=== PATIENT | female | born 1980 | race American Indian/Alaskan Native ===

== ENCOUNTER 2017-11-30 00:49 | Inpatient (IN) | payer OTHER ==
[2017-11-30] MEDS ORDERED: PITOCin/NS 20 UNIT/1000ML DRIP 20,000 MILLIUNITS/1,000 ML BAG IV ONE (01:05)
[2017-11-30] MEDS ORDERED: LACTATED RINGERS 1,000 ML ONE ×2 (01:06→08:40)
[2017-11-30] MEDS ORDERED: MAGNESIUM SULFATE 4GM/100ML 4 GM/100 ML BAG IV ONE ×2 (01:17→01:22)
[2017-11-30] MEDS ORDERED: BRETHINE SUB-Q PRN (01:19)
[2017-11-30] MEDS ORDERED: ZOFRAN IV PRN ×2 (01:19→05:55)
[2017-11-30] MEDS ORDERED: BRETHINE IVP PRN (01:19)
[2017-11-30] MEDS ORDERED: XYLOCAINE 2% INFILTRATI ONE (01:19)
[2017-11-30] MEDS ORDERED: POLYCILLIN/NS 2 GM/100 ML 2 GM/100 ML BAG IV ONE (01:19)
[2017-11-30] MEDS ORDERED: ePHEDrine SULFATE IV PRN (01:19)
[2017-11-30] MEDS ORDERED: MINERAL OIL PO PRN (01:19)
[2017-11-30] MEDS ORDERED: NARCAN 0.4 MG/1 ML IV PRN (01:19)
[2017-11-30] MEDS ORDERED: NORMODYNE IV ONE ×2 (01:22→03:26)
[2017-11-30] MEDS ORDERED: APRESOLINE IV PRN (01:22)
[2017-11-30] MEDS ORDERED: MAGNESIUM SULFATE 40GM/1000ML 40 GM/1,000 ML BAG IV SCH (01:23)
--- NOTE | 2017-11-30 01:25 | History and Physical Report ---
History of Present Illness Date of examination: 11/30/17 Date of admission: 11/30/17 00:54 Chief complaint: contractions History of present illness: Pt is a 37 year old -Japanese LMP 02/26/17 at 39w4d who presents with contractions since 6 am with no care whatsoever this . She denies leakage of fluid or vaginal bleeding. She reports that she is considering giving the baby up for adoption. 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 ) Family/Genetic History: heart disease, hypertension Social history: no significant social history - Obstetrical History Expected Date of Delivery: 12/03/17 Actual Gestation: 39 Week(s) 4 Day(s) : 8 Para: 7 Hx # Term Pregnancies: 6 Number of Pregnancies: 1 Spontaneous Abortions: 0 Induced : 0 Number of Living Children: 6 Medications and Allergies Allergies Allergy/AdvReac Type Severity Reaction Status Date / Time No Known Allergies Allergy Verified 10/15/14 01:41 Home Medications Medication Instructions Recorded Confirmed Last Taken Type No Known Home Medications [No 10/15/14 10/15/14 Unknown History Reported Home Medications] Active Meds: Active Medications Ephedrine Sulfate (Ephedrine Sulfate) 10 mg IV Q2M PRN PRN Reason: Hypotension Fentanyl (Sublimaze) 100 mcg IV Q2H PRN PRN Reason: Labor Pain Ampicillin Sodium (Polycillin/Ns 2 Gm/100 Ml) 2 gm in 100 mls @ 100 mls/hr IV ONCE ONE PRN Reason: Protocol Stop: 11/30/17 02:18 Ampicillin Sodium (Polycillin/Ns 1 Gm/50 Ml) 1 gm in 50 mls @ 100 mls/hr IV Q4HR ELIJAH PRN Reason: Protocol Lactated Ringer's (Lactated Ringers) 1,000 mls @ 125 mls/hr IV DIRECT ELIJAH Oxytocin/Sodium Chloride (Pitocin/Ns 20 Unit/1000ml Drip) 20 units in 1,000 mls @ 125 mls/hr IV DIRECT ELIJAH Oxytocin/Sodium Chloride (Pitocin/Ns 30 Unit/500ml) 30 units in 500 mls @ 4 mls /hr IV TITR ELIJAH PRN Reason: Protocol Lidocaine (Xylocaine 2%) 20 ml INFILTRATI ONCE ONE Stop: 11/30/17 01:20 Mineral Oil (Mineral Oil) 30 ml PO QHS PRN PRN Reason: Constipation Naloxone HCl (Narcan 0.4 Mg/1 Ml) 0.1 mg IV Q2MIN PRN PRN Reason: Res Rate </= 8 or 02 SAT < 92% Ondansetron HCl (Zofran) 4 mg IV Q8H PRN PRN Reason: Nausea And Vomiting Terbutaline Sulfate (Brethine) 0.25 mg SUB-Q ONCE PRN PRN Reason: Hyperstimulation/Hypertonicity Terbutaline Sulfate (Brethine) 0.25 mg IVP ONCE PRN PRN Reason: Hyperstimulation/Hypertonicity Review of Systems All systems: negative - Vital Signs Vital signs: Vital Signs Pulse BP 100 H 206/122 11/30/17 01:00 11/30/17 01:00 Temp Pulse Resp BP Pulse Ox 100 H 191/103 11/30/17 01:12 11/30/17 01:12 - Physical Exam Breasts: Positive: deferred Cardiovascular: Regular rate Lungs: Positive: Clear to auscultation Abdomen: Positive: soft (obese, gravid ) Genitourinary (Female): Positive: normal external genitalia Uterus: Positive: enlarged (gravid ) Extremities: Positive: normal - Obstetrical FHR: category 2 Uterine Contraction Monitor Mode: External Cervical Dilatation: 8 Cervical Effacement Percentage: 80 station: -1 Uterine Contraction Pattern: Regular Uterine Tone Measurement Phase: Resting Results Result Diagrams: 11/30/17 01:00 All other labs normal. Assessment and Plan A: IUP at 39w4d by LMP No care Hypertension vs Severe PreEclampsia Pt considering adoption P: Admit to labor and delivery. Magnesium sulfate No care PIH labs Continue to monitor maternal and status.
[2017-11-30] MEDS: SUBLIMAZE IV PRN ×2 (01:50→04:07)
[2017-11-30 01:59] LABS: Hematocrit 36.1 % (30.3-42.9); Hemoglobin 12.2 gm/dl (10.1-14.3); Mean Corpuscular HGB Conc 34 % (30-34); Mean Corpuscular Hemoglobin 30 pg (28-32); Mean Corpuscular Volume 89 fl (79-97); Platelet Count 233 K/mm3 (140-440); Red Blood Count 4.06 M/mm3 (3.65-5.03); Red Cell Distribution Width 14.9 % (13.2-15.2)
[2017-11-30] MEDS ORDERED: PITOCin/NS 30 UNIT/500ML 30 UNITS/500 ML BAG IV SCH (02:00)
[2017-11-30] MEDS ORDERED: PITOCin/NS 20 UNIT/1000ML DRIP 20 UNITS/1,000 ML BAG IV SCH ×2 (02:00→05:55)
[2017-11-30] MEDS ORDERED: LACTATED RINGERS 1,000 ML IV SCH (02:00)
[2017-11-30 02:21] LABS: Alanine Aminotransferase 12 units/L (7-56)
[2017-11-30] MEDS: APRESOLINE IV PRN ×3 (02:27→05:13)
[2017-11-30 02:31] LABS: Hepatitis C Virus Antibody Non-Reactive (NonReactive)
[2017-11-30] MEDS ORDERED: MORPHINE IV ONE (02:46)
[2017-11-30 02:54] LABS: Rubella IgG Antibody Immune (Immune)
[2017-11-30] MEDS ORDERED: fentaNYL-BUPIV 2 MCG/ML-0.125% 200 MCG/100 ML BAG EPIDURAL SCH (03:00)
--- NOTE | 2017-11-30 03:08 | Anesthesia Consultation ---
Anesthesia Consult and Med Hx Date of service: 11/30/17 - Airway Anesthetic Teeth Evaluation: Good ROM Head & Neck: Adequate Mental/Hyoid Distance: Adequate Mallampati Class: Class III Intubation Access Assessment: Possibly Difficult - Pulmonary Exam CTA: Yes - Cardiac Exam Cardiac Exam: RRR - Pre-Operative Health Status ASA Pre-Surgery Classification: ASA3 Proposed Anesthetic Plan: Spinal - Pulmonary Hx Asthma: No COPD: No Hx Pneumonia: No - Cardiovascular System Hx Hypertension: No - Central Nervous System Hx Seizures: No Hx Psychiatric Problems: No - Endocrine Hx Renal Disease: No Hx End Stage Renal Disease: No Hx Hypothyroidism: No Hx Hyperthyroidism: No - Hematic Hx Anemia: No Hx Sickle Cell Disease: No - Other Systems Hx Alcohol Use: Yes
--- NOTE | 2017-11-30 03:08 | Anesthesia Day of Surgery ---
Anesthesia Day of Surgery - Day of Surgery Patient Examined: Yes Patient H&P Reviewed: Yes Patient is NPO: Yes Beta Blockers: Yes Cardiac Clearance: Yes
[2017-11-30 03:10] LABS: Uric Acid 6.8 mg/dL (3.5-7.6)
--- NOTE | 2017-11-30 03:26 | Procedure Note ---
OB Delivery Note - Delivery Date of Delivery: 11/30/17 Surgeon: CHRISTIE MAZARIEGOS Estimated blood loss: 300cc - Vaginal Delivery presentation: compound Delivery position: OA Intrapartum events: no care, PROM->1hr before delivery, meconium, preeclampsia, decreased FHT variability, mult.variable deceleratio Delivery induction: none Delivery augmentation: rupture of membranes Delivery monitor: external FHT, external uterine Route of delivery: Delivery placenta: spontaneous Delivery cord: 3 umbilical vessels Episiotomy: none Delivery laceration: 1st degree (perineal- hemostatic not repaired ), other ( midline periurethral- first degree ) Anesthesia: intravenous, epidural (Morphine in intrathecal space, no catheter ) Delivery comments: Pt progressed to complete/complete/0 and pushed to deliver a viable male over intact perineum via spontaneous vaginal delivery. Head delivered with left hand, and shoulders and body delivered easily. Cord clamped and cut and handed to NICU for meconium. Cord blood collected. Placenta delivered spontaneously. Vagina and perineum explored. Midline periurethral and first degree perineum hemostatic and not repaired. EBL 300 mL. - Infant A at 1 minute: 7 at 5 minutes: 9 Infant Gender: Male (3734g (8lb 4 oz) @ 0301 am)
[2017-11-30 03:49] LABS: Amphetamine Screen,Urine PRESUMPTIVE NEGATIVE; Benzodiazepines Screen,Urine PRESUMPTIVE NEGATIVE; Cannabinoid Screen,Urine PRESUMPTIVE NEGATIVE; Cocaine Screen,Urine PRESUMPTIVE NEGATIVE; Methadone Screen,Urine PRESUMPTIVE NEGATIVE; Opiate Screen,Urine PRESUMPTIVE NEGATIVE
[2017-11-30 04:08] LABS: Bilirubin,Urine NEG (Negative); Blood,Urine LG (Negative); Color,Urine Yellow (Yellow); Hyaline Casts,Urine 5 /LPF; Mucus,Urine 1+ /HPF; Nitrite,Urine NEG (Negative); Protein,Urine >500 mg/dL (Negative); RBC,Urine > 182.0 /HPF (0.0-6.0); Urobilinogen,Urine < 2.0 mg/dL (<2.0)
[2017-11-30] MEDS ORDERED: CYTOTEC PR ONE (04:49)
[2017-11-30] MEDS ORDERED: POLYCILLIN/NS 1 GM/50 ML 1 GM/50 ML BAG IV SCH (05:20)
[2017-11-30] MEDS ORDERED: DULCOLAX PR PRN (05:55)
[2017-11-30] MEDS ORDERED: LANSINOH TP PRN ×2 (05:55)
[2017-11-30] MEDS ORDERED: TUCKS PAD TP PRN (05:55)
[2017-11-30] MEDS ORDERED: MILK OF MAGNESIA PO PRN (05:55)
[2017-11-30] MEDS ORDERED: SODIUM CHLORIDE FLUSH SYRINGE 10 ML IV NR (05:55)
[2017-11-30] MEDS ORDERED: DERMOPLAST TP PRN (05:55)
[2017-11-30] MEDS ORDERED: TYLENOL PO PRN (05:55)
[2017-11-30] MEDS ORDERED: PHENERGAN PO PRN (05:55)
[2017-11-30] MEDS ORDERED: BENADRYL PO PRN (05:55)
[2017-11-30] MEDS ORDERED: PHENERGAN PR PRN (05:55)
[2017-11-30] MEDS: MOTRIN PO SCH ×3 (06:25→18:51)
[2017-11-30] MEDS: NORCO 5/325 PO PRN ×2 (06:26→16:50)
[2017-11-30] MEDS: FEOSOL PO SCH ×2 (08:53→21:55)
[2017-11-30] MEDS: LACTATED RINGERS 1,000 ML IV SCH ×2 (08:54→21:59)
[2017-11-30] MEDS ORDERED: NORMODYNE PO SCH (11:10)
[2017-11-30 15:43] LABS: Hematocrit 32.2 % (30.3-42.9); Hemoglobin 10.8 gm/dl (10.1-14.3)
--- NOTE | 2017-11-30 17:50 | Progress Note ---
Assessment and Plan O: BP elevated 150-160/98-109 PP H/H: 10.8/32.2 Magnesium Level: 5.0 A: No care S/P 4hr prior to assessment Chronic Hypertension with superimposed severe preeclampsia Elevated BP Therapeutic Magnesium Level P: Add Labetalol as ordered Subjective - Subjective Date of service: 11/30/17 Patient reports: appetite normal, pain well controlled (c/o afterbirth pains), other (c/o headache earlier, received motrin, resolved. Denies blurred vision, epigastric pain or scotomata), no voiding normally (bernstein present and patent. ) : doing well Objective - Vital Signs Latest vital signs: Vital Signs Temp Pulse Resp BP BP Pulse Ox 11/30/17 14:06 98.0 F 80 20 132/82 98 11/30/17 11:45 97.7 F 105 H 20 154/99 95 11/30/17 08:42 98.4 F 106 H 24 153/89 95 11/30/17 06:50 98.9 F 105 H 11/30/17 06:45 18 152/98 11/30/17 06:26 18 11/30/17 06:25 18 11/30/17 05:40 110 H 158/100 11/30/17 05:26 104 H 159/101 11/30/17 05:10 101 H 168/106 11/30/17 04:57 102 H 163/101 11/30/17 04:56 100 H 164/99 11/30/17 04:40 103 H 156/90 11/30/17 04:25 96 H 156/90 11/30/17 04:20 100 H 155/86 11/30/17 04:17 97.4 F L 20 11/30/17 04:10 99 H 169/91 11/30/17 04:07 18 11/30/17 04:00 98 H 95 11/30/17 03:56 99 H 172/91 11/30/17 03:55 96 H 94 11/30/17 03:50 101 H 96 11/30/17 03:45 107 H 96 11/30/17 03:44 114 H 176/123 11/30/17 03:41 105 H 167/107 11/30/17 03:40 110 H 176/123 11/30/17 03:27 105 H 159/100 11/30/17 03:09 100 H 196/90 11/30/17 03:06 115 H 214/130 11/30/17 03:03 110 H 178/139 11/30/17 02:59 105 H 175/95 11/30/17 02:51 97 H 187/100 11/30/17 02:48 102 H 181/113 11/30/17 02:41 101 H 195/105 11/30/17 02:36 91 H 201/95 11/30/17 02:27 92 H 188/113 11/30/17 02:22 98 H 177/117 11/30/17 02:20 94 H 100 11/30/17 02:16 88 192/107 11/30/17 02:11 87 186/115 11/30/17 02:07 89 181/101 11/30/17 02:03 93 H 162/104 11/30/17 01:51 100 H 192/99 11/30/17 01:46 102 H 186/96 11/30/17 01:42 96.6 F L 22 11/30/17 01:40 96 H 177/88 11/30/17 01:31 102 H 191/106 11/30/17 01:12 100 H 191/103 11/30/17 01:02 105 H 182/113 11/30/17 01:00 100 H 206/122 Intake and Output 11/30/17 11/30/17 11/30/17 06:59 14:59 22:59 Intake Total 120 Output Total 900 1300 Balance -900 -1180 Intake: Oral 120 Output: Urine 900 1300 Indwelling Catheter 300 1300 Uretheral (Bernstein) 600 Other: Total, Intake Amount 120 Total, Output Amount 300 1300 Weight 97.522 kg Estimated Blood Loss 300 - Exam Breasts: Present: deferred Abdomen: Present: normal appearance, soft Uterus: Present: normal, firm, fundal height at umbilicus - Labs Labs: Abnormal lab results 11/30/17 11/30/17 11/30/17 Range/Units 01:00 01:00 03:20 WBC 11.4 H (4.5-11.0) K/mm3 Creatinine 0.5 L (0.7-1.2) mg/dL Magnesium (1.7-2.3) mg/dL Lactate Dehydrogenase 246 H (91-180) units/L Urine WBC (Auto) 10.0 H (0.0-6.0) /HPF 11/30/17 11/30/17 Range/Units 08:46 15:13 WBC (4.5-11.0) K/mm3 Creatinine (0.7-1.2) mg/dL Magnesium 4.30 H 5.50 H (1.7-2.3) mg/dL Lactate Dehydrogenase (91-180) units/L Urine WBC (Auto) (0.0-6.0) /HPF
[2017-11-30] MEDS: NORMODYNE PO SCH (21:57)
[2017-11-30] MEDS ORDERED: MAGNESIUM SULFATE 40 GM in NACL 0.9% 1000 ML 1,000 ML IV SCH (22:00)
[2017-12-01] MEDS: MOTRIN PO SCH ×3 (02:17→18:46)
[2017-12-01] MEDS ORDERED: BOOSTRIX IM ONE (06:00)
[2017-12-01] MEDS ORDERED: M-M-R II VACCINE SUB-Q ONE (06:00)
[2017-12-01] MEDS: NORCO 5/325 PO PRN (06:35)
--- NOTE | 2017-12-01 08:55 | Progress Note ---
Assessment and Plan A: PPD#1 s/p at term Chronic Hypertension with Superimposed Preeclampsia s/p magnesium sulfate x 24 hrs Labile BPs No care P: Continue routine care. Begin Procardia XL 60 mg q day Monitor clinical status Subjective - Subjective Date of service: 12/01/17 Principal diagnosis: s/p term delivery, chronic hypertension with superimposed preeclampsia Interval history: Pt has decided not to give child up for adoption. She denies PIH symptoms. Magnesium discontinued this morning. Patient reports: appetite normal, voiding normally, pain well controlled, ambulating normally, no dizzy ambulation : doing well Objective - Vital Signs Latest vital signs: Vital Signs Temp Pulse Resp BP BP Pulse Ox 12/01/17 05:01 98.2 F 18 156/83 12/01/17 02:07 97.9 F 151/103 12/01/17 01:27 97.7 F 131/87 11/30/17 21:57 74 151/99 11/30/17 20:05 98.2 F 76 18 150/98 99 11/30/17 18:22 85 22 147/94 147/94 92 11/30/17 16:46 98.6 F 85 24 146/97 96 11/30/17 14:06 98.0 F 80 20 132/82 98 11/30/17 11:45 97.7 F 105 H 20 154/99 95 11/30/17 11:15 159/91 Intake and Output 11/30/17 12/01/17 12/01/17 22:59 06:59 14:59 Intake Total 1221.25 Output Total 400 Balance 821.25 Intake: IV 981.25 Lactated Ringers 1,000 ml 981.25 @ 75 mls/hr IV DIRECT ELIJAH Rx#:[id number] Oral 240 Output: Urine 400 Indwelling Catheter 400 Other: Total, Intake Amount 240 Total, Output Amount 400 - Exam Breasts: Present: deferred Cardiovascular: Present: Regular rate Lungs: Present: Clear to auscultation Abdomen: Present: soft (obese) Uterus: Present: fundal height at umbilicus Extremities: Present: normal - Labs Labs: Abnormal lab results 11/30/17 11/30/17 11/30/17 Range/Units 08:46 15:13 21:34 Magnesium 4.30 H 5.50 H 5.70 H (1.7-2.3) mg/dL
[2017-12-01] MEDS: FEOSOL PO SCH ×2 (10:07→22:51)
[2017-12-01] MEDS: NORMODYNE PO SCH ×2 (10:07→22:55)
[2017-12-01] MEDS: PROCARDIA XL PO SCH (10:07)
[2017-12-02] MEDS ORDERED: PROCARDIA XL PO SCH (10:00)
[2017-12-02] MEDS: FEOSOL PO SCH ×2 (10:54→16:00)
[2017-12-02] MEDS: NORMODYNE PO SCH (10:55)
[2017-12-02] MEDS: MOTRIN PO SCH (11:04)
--- NOTE | 2017-12-02 13:28 | Progress Note ---
Assessment and Plan O: BP 150/80 A: No care Chronic Hypertension with Severe Superimposed Preeclampsia S/P Magnesium Sulfate P: routine orders RTO one week BP check Subjective - Subjective Date of service: 12/02/17 Principal diagnosis: s/p term delivery, chronic hypertension with superimposed preeclampsia Patient reports: appetite normal, voiding normally, pain well controlled, flatus , ambulating normally, other (Denies PIH S&S) : doing well, bottle feeding Objective - Vital Signs Latest vital signs: Vital Signs Temp Pulse Resp BP BP Pulse Ox 12/02/17 11:48 98.3 F 76 20 148/94 98 12/02/17 08:55 98.1 F 83 20 156/96 97 12/02/17 00:15 83 156/87 12/01/17 16:42 98.4 F 85 22 150/81 97 Intake and Output 12/01/17 12/02/17 12/02/17 22:59 06:59 14:59 Intake Total 480 480 600 Balance 480 480 600 Intake: Oral 480 480 120 Intake, Free Water 480 Other: Total, Intake Amount 240 240 120 # Voids Void 1 1 1 - Exam Breasts: Present: deferred Abdomen: Present: normal appearance, soft. Absent: distention, tenderness Vulva: both: normal Uterus: Present: normal, firm, fundal height below umbilicus. Absent: bogginess , tenderness Extremities: Present: normal
--- NOTE | 2017-12-02 13:33 | Discharge Summary ---
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 Notified:: none Comment:: pt considering adoption for this baby Primary care physician: CHRISTIE MAZARIEGOS Hospitalization Reason for admission: active labor, IUP at term Delivery: Episiotomy: none Laceration: 1st degree Other procedures: none complications: other (Preeclampsia) Discharge diagnosis: IUP at term delivered baby: male Condition at discharge: Good Disposition: DC-01 TO HOME OR SELFCARE Plan - Discharge Medications Prescriptions: Ibuprofen [Motrin] 800 mg PO Q8HR PRN #30 tablet PRN Reason: Pain Labetalol [Normodyne TAB] 400 mg PO BID #60 tablet NIFEdipine XL [Procardia Xl] 90 mg PO QDAY #60 tablet oxyCODONE /ACETAMINOPHEN [Percocet 5/325] 1 tab PO Q6HR PRN #20 tablet PRN Reason: Pain - Provider Discharge Summary Activity: routine, no sex for 6 weeks, no heavy lifting 4 weeks, no strenuous exercise Diet: routine Instructions: routine Additional instructions: [] Smoking cessation referral if applicable(refer to patient education folder for contact #) [] Refer to [facility] Booklet Call your doctor immediately for: * Fever > 100.5 * Heavy vaginal bleeding ( >1 pad per hour) * Severe persistent headache * Shortness of breath * Reddened, hot, painful area to leg or breast * Drainage or odor from incision. * Keep incision clean and dry at all times and follow doctor's instructions regarding bathing/showering - Follow up plan Follow up: CHRISTIE MAZARIEGOS MD [Primary Care Provider] - 7 Days (Call office to schedule infant circumcision)
[2017-12-02] MEDS: PROCARDIA XL PO SCH (16:24)
[2017-12-02 17:22] VITALS: BP 146/94
== END 2017-12-02 16:28 | disposition home or self-care (01) | DRG 775 ==
LOC: TRG 00:49 → LD 00:54 → OB 05:49
PROVIDERS: ADMIT Obstetrics & Gynecology; ATTEND Obstetrics & Gynecology
PROC: 10E0XZZ Delivery of Products of Conception, External Approach (ICD-10-PCS; principal; 2017-11-30)
PROC: 3E0R3BZ Introduction of Anesthetic Agent into Spinal Canal, Percutaneous Approach (ICD-10-PCS; 2017-11-30)
PROC: 3E0234Z Introduction of Serum, Toxoid and Vaccine into Muscle, Percutaneous Approach (ICD-10-PCS; 2017-12-01)
DX: O42.02 Full-term premature rupture of membranes, onset of labor within 24 hours of rupture (principal); O77.0 Labor and delivery complicated by meconium in amniotic fluid; O14.14 Severe pre-eclampsia complicating childbirth; O76 Abnormality in fetal heart rate and rhythm complicating labor and delivery; O70.0 First degree perineal laceration during delivery; O71.82 Other specified trauma to perineum and vulva; Z3A.39 39 weeks gestation of pregnancy; Z37.0 Single live birth; Z23 Encounter for immunization
CPT/HCPCS: 36415; 80307; 81001; 82565; 83615; 83735; 84450; 84460; 84550; 85014; 85018; 85027; 85660; 86592; 86706; 86762; 86803; 86850; 86900; 86901; 87806; 99211; G0463; J0290; J0360; J2270; J2590; J3010; J3475; J7030; J7120

== ENCOUNTER 2018-01-31 07:57 | Day surgery (SDC) | payer MEDICAID, OTHER ==
--- NOTE | 2018-01-31 07:38 | Short Stay Summary ---
Short Stay Documentation Date of service: 01/31/18 Narrative H&P: 37-year-old with undesired fertility. The patient was counseled for other contraceptive options. She has elected to undergo permanent sterilization. - History Principal diagnosis: undesired fertility Past Medical History: hypertension Past Surgical History: No surgical history Social history: - Allergies and Medications Current Medications: Allergies No Known Allergies Allergy (Verified 01/29/18 16:27) Home Medications Medication Instructions Recorded Confirmed Last Taken Type Labetalol [Normodyne TAB] 400 mg PO BID #60 tablet 12/02/17 01/29/18 Unknown Rx - Physical exam General appearance: no acute distress Integumentary: no rash HEENT: Atraumatic Lungs: Clear to auscultation Breasts: deferred Heart: Regular rate Gastrointestinal: normal Female Genitourinary: deferred Rectal Exam: deferred Short Stay Discharge Plan Follow up with: CHRISTIE MAZARIEGOS MD [Primary Care Provider] - 7 Days
--- NOTE | 2018-01-31 09:41 | Anesthesia Consultation ---
Anesthesia Consult and Med Hx Date of service: 01/31/18 - Airway Anesthetic Teeth Evaluation: Good ROM Head & Neck: Adequate Mental/Hyoid Distance: Adequate Mallampati Class: Class II - Pulmonary Exam CTA: Yes - Cardiac Exam Cardiac Exam: RRR - Pre-Operative Health Status ASA Pre-Surgery Classification: ASA2 Proposed Anesthetic Plan: General - Pre-Anesthesia Comment Pre-Anesthesia Comments: npo post midnight/denies anethesia problems - Pulmonary Hx Smoking: No Hx Asthma: No Hx Respiratory Symptoms: No SOB: No COPD: No Home Oxygen Therapy: No Hx Pneumonia: No - Cardiovascular System Hx Hypertension: Yes Hx Coronary Artery Disease: No Hx Heart Attack/AMI: No Hx Angina: No Hx Percutaneous Transluminal Coronary Angioplasty (PTCA): No Hx Cardia Arrhythmia: No Hx Pacemaker: No Hx Internal Defibrillator: No Hx Valvular Heart Disease: No Hx Heart Murmur: No Hx Peripheral Vascular Disease: No - Central Nervous System Hx Neuromuscular Disorder: No Hx Seizures: No CVA: No Hx Back Pain: No Hx Psychiatric Problems: No - Gastrointestinal Hx Ulcer: No Hx Gastroesophageal Reflux Disease: No - Endocrine Hx Renal Disease: No Hx End Stage Renal Disease: No Hx Cirrhosis: No Hx Liver Disease: No Hx Insulin Dependent Diabetes: No Hx Non-Insulin Dependent Diabetes: No Hx Thyroid Disease: No Hx Hypothyroidism: No Hx Hyperthyroidism: No - Hematic Hx Anemia: No Hx Sickle Cell Disease: No - Other Systems Hx Alcohol Use: No (occas) Hx Substance Use: No Hx Cancer: No Hx Obesity: No - Additional Comments Anesthesia Medical History Comments: hypertension/poor control
[2018-01-31] MEDS ORDERED: DILAUDID IV PRN (09:43)
[2018-01-31] MEDS ORDERED: PEPCID PO NR (10:00)
[2018-01-31] MEDS ORDERED: VERSED IV NR (10:00)
[2018-01-31] MEDS ORDERED: LACTATED RINGERS 1,000 ML ONE (10:12)
[2018-01-31] MEDS: APRESOLINE IV PRN ×2 (10:40→11:35)
[2018-01-31] MEDS ORDERED: MARCAINE 0.5% INFILTRATI ONE (10:54)
[2018-01-31 12:04] VITALS: BP 194/137
== END 2018-01-31 07:58 | disposition home or self-care (01) ==
LOC: OR 07:57
PROVIDERS: ATTEND Obstetrics & Gynecology
DX: Z30.2 Encounter for sterilization (principal); Z53.8 Procedure and treatment not carried out for other reasons; I10 Essential (primary) hypertension
CPT/HCPCS: 81025; J0360; J7120; J2250

== ENCOUNTER 2019-12-13 07:35 | Inpatient (IN) | payer OTHER ==
[2019-12-13] MEDS ORDERED: LACTATED RINGERS 1,000 ML ONE ×2 (07:59→23:45)
[2019-12-13] MEDS ORDERED: miSOPROStol 200 MCG TAB ONE (08:19)
[2019-12-13 08:29] LABS: Hematocrit 35.5 % (30.3-42.9); Hemoglobin 12.2 gm/dl (10.1-14.3); Mean Corpuscular HGB Conc 34 % (30-34); Mean Corpuscular Volume 90 fl (79-97); Platelet Count 245 K/mm3 (140-440); Red Blood Count 3.97 M/mm3 (3.65-5.03); Red Cell Distribution Width 14.9 % (13.2-15.2)
[2019-12-13] MEDS ORDERED: ePHEDrine SULFATE 50 MG/1 ML INJ IV PRN (08:30)
[2019-12-13] MEDS ORDERED: LIDOCAINE (2%) 20 MG/1 ML VIAL 20 ML MDV INFILTRATI NR (08:30)
[2019-12-13] MEDS ORDERED: ONDANSETRON 4 MG/2 ML INJ IV PRN ×2 (08:30→11:00)
[2019-12-13] MEDS ORDERED: BUTORPHANOL 2 MG/1 ML INJ IV PRN (08:30)
[2019-12-13] MEDS ORDERED: AMPICILLIN/NS 2 GM/100 ML 2 GM/100 ML BAG IV NR (08:30)
[2019-12-13] MEDS: OXYTOCIN 20 UNIT/1000ML DRIP 20 UNITS/1,000 ML BAG IV SCH ×2 (08:40→10:16)
--- NOTE | 2019-12-13 08:59 | History and Physical Report ---
History of Present Illness Date of examination: 12/13/19 Date of admission: 12/13/19 07:36 Chief complaint: I'm in labor History of present illness: Pt is a 39 year old who presents in active labor with no care with this . Pt last had a delivery in 2018 also with no care and blood pressure issues post , however patient did not follow up. Past History Past Medical History: no pertinent history Past Surgical History: no surgical history - Obstetrical History Expected Date of Delivery: 12/13/19 Actual Gestation: 40 Week(s) 0 Day(s) : 9 Para: 7 Number of Living Children: 7 Medications and Allergies Allergies Allergy/AdvReac Type Severity Reaction Status Date / Time No Known Allergies Allergy Verified 01/29/18 16:27 Home Medications Medication Instructions Recorded Confirmed Last Taken Type labetaloL [Labetalol 200mg TAB] 400 mg PO BID #60 tablet 12/02/17 01/31/18 01/31/18 06:40 Rx Active Meds: Active Medications Butorphanol Tartrate (Stadol) 2 mg IV Q2H PRN PRN Reason: Pain , Severe (7-10) Ephedrine Sulfate (Ephedrine Sulfate) 10 mg IV Q2M PRN PRN Reason: Hypotension Ampicillin Sodium (Ampicillin/Ns 1 Gm/50 Ml) 1 gm in 50 mls @ 100 mls/hr IV Q4H ELIJAH; Protocol Ampicillin Sodium (Ampicillin/Ns 2 Gm/100 Ml) 2 gm in 100 mls @ 100 mls/hr IV ONCE NR; Protocol Stop: 12/13/19 09:30 Lactated Ringer's (Lactated Ringers) 1,000 mls @ 125 mls/hr IV DIRECT ELIJAH Oxytocin/Sodium Chloride (Pitocin/Ns 20 Unit/1000ml Drip) 20 units in 1,000 mls @ 125 mls/hr IV DIRECT ELIJAH Oxytocin/Sodium Chloride (Pitocin/Ns 30 Unit/500ml) 30 units in 500 mls @ 1 mls/hr IV TITR ELIJAH; Protocol Oxytocin/Sodium Chloride (Pitocin/Ns 30 Unit/500ml) 30 units in 500 mls @ 2 mls/hr IV TITR ELIJAH; Protocol Lidocaine (Xylocaine 2%) 20 ml INFILTRATI ONCE NR Stop: 12/14/19 08:29 Mineral Oil (Mineral Oil) 30 ml PO QHS PRN PRN Reason: Constipation Ondansetron HCl (Zofran) 4 mg IV Q8H PRN PRN Reason: Nausea And Vomiting Promethazine HCl (Phenergan) 25 mg IL Q6H PRN PRN Reason: N/V if unable to take po Terbutaline Sulfate (Brethine) 0.25 mg SUB-Q ONCE PRN PRN Reason: Hyperstimulation/Hypertonicity Terbutaline Sulfate (Brethine) 0.25 mg IVP ONCE PRN PRN Reason: Hyperstimulation/Hypertonicity Review of Systems All systems: negative Genitourinary: leakage of fluid, contractions - Vital Signs Vital signs: Vital Signs Pulse Pulse Ox 103 H 100 12/13/19 07:47 12/13/19 07:47 Temp Pulse Resp BP Pulse Ox 105 H 215/112 98 12/13/19 08:52 12/13/19 08:52 12/13/19 08:50 - Physical Exam Breasts: Cardiovascular: Regular rate, Normal S1, Normal S2 Lungs: Positive: Clear to auscultation, Normal air movement Abdomen: Positive: normal appearance, soft, normal bowel sounds. Negative: distention, tenderness Genitourinary (Female): Positive: normal external genitalia, normal perenium Vulva: both: normal Vagina: Positive: normal moisture. Negative: discharge Cervix: Negative: lesion, discharge Uterus: Positive: normal size, normal contour Adnexa: both: normal Anus/Rectum: Positive: normal perianal skin, heme negative. Negative: rectal mass, hemorrhoids Extremities: Deep Tendon Reflex Grade: Normal +2 - Obstetrical Cervical Dilatation: 9 Cervical Effacement Percentage: 80 station: -1 Uterine Contraction Pattern: Regular Uterine Tone Measurement Phase: Contraction Uterine Contraction Intensity: Strong/Firm Results Result Diagrams: 12/13/19 07:50 All other labs normal. Assessment and Plan IUP at approximately 40 weeks in active labor with no care. Will admit for imminent delivery. Anticipate . Will order labs and panel as patient has no care.
[2019-12-13] MEDS ORDERED: TERBUTALINE 1 MG/1 ML INJ IVP PRN (09:00)
[2019-12-13] MEDS ORDERED: MINERAL OIL 30 ML ORAL LIQD PO PRN (09:00)
[2019-12-13] MEDS ORDERED: TERBUTALINE 1 MG/1 ML INJ SUB-Q PRN (09:00)
[2019-12-13] MEDS ORDERED: PROMETHAZINE 25 MG RECT SUPP PR PRN ×2 (09:00→11:00)
[2019-12-13] MEDS ORDERED: OXYTOCIN DRIP 30 UNITS/500 ML BAG IV SCH ×2 (09:00)
[2019-12-13] MEDS ORDERED: LACTATED RINGERS 1,000 ML IV SCH (09:00)
--- NOTE | 2019-12-13 09:06 | Procedure Note ---
OB Delivery Note - Delivery Date of Delivery: 12/13/19 Surgeon: CATERINA SIFUENTES Estimated blood loss: 100cc - Vaginal Delivery presentation: vertex Delivery position: OA Intrapartum events: no care Delivery induction: none Delivery monitor: external FHT, external uterine Route of delivery: Delivery placenta: spontaneous Delivery cord: nuchal cord, 3 umbilical vessels Episiotomy: none Delivery laceration: none Anesthesia: none Delivery comments: Viable female delivered over intact perineum with loose nuchal cord easily reduced on the perineum. Infant handed to NICU personnel. Placenta delivered spontaneously and intact with 3vc along with minimal fluid. Small first degree laceration not repaired. Weight 8 pounds 7 ounces. apgars 7,9. Pt tolerated procedure well. Fundal height is significantly above umbilicus due to what appears to be a large fundal uterine fibroid. - Infant A at 1 minute: 8 at 5 minutes: 9 Gender: Female (8 pounds7 ounces)
[2019-12-13 09:19] LABS: Alanine Aminotransferase 9 units/L (7-56); Uric Acid 5.7 mg/dL (3.5-7.6)
[2019-12-13] MEDS ORDERED: MAGNESIUM SULFATE 40GM/1000ML 40 GM/1,000 ML BAG IV ONE (09:30)
[2019-12-13] MEDS ORDERED: hydrALAZINE 20 MG/1 ML INJ ONE (09:30)
[2019-12-13] MEDS ORDERED: MAGNESIUM SULFATE 4 GM/100 ML BAG IV ONE ×2 (09:30)
[2019-12-13] MEDS: hydrALAZINE 20 MG/1 ML INJ IV PRN ×4 (09:37→17:28)
[2019-12-13] MEDS: MAGNESIUM SULFATE 40GM/1000ML 40 GM/1,000 ML BAG IV SCH (10:12)
[2019-12-13] MEDS ORDERED: diphenhydrAMINE 25 MG CAP PO PRN (10:30)
[2019-12-13] MEDS ORDERED: ACETAMINOPHEN 325 MG TAB PO PRN (10:30)
[2019-12-13] MEDS ORDERED: LANOLIN/ZINC/DIMETHICONE (LANSINOH) 7 GM TP PRN (10:30)
[2019-12-13] MEDS: IBUPROFEN 600 MG TAB PO SCH ×2 (10:33→17:53)
[2019-12-13 10:58] LABS: Amphetamine Screen,Urine PRESUMPTIVE NEGATIVE; Benzodiazepines Screen,Urine PRESUMPTIVE NEGATIVE; Cannabinoid Screen,Urine PRESUMPTIVE NEGATIVE; Cocaine Screen,Urine PRESUMPTIVE NEGATIVE; Methadone Screen,Urine PRESUMPTIVE NEGATIVE; Opiate Screen,Urine PRESUMPTIVE NEGATIVE
[2019-12-13] MEDS ORDERED: PROMETHAZINE 25 MG TAB PO PRN (11:00)
[2019-12-13] MEDS ORDERED: WITCH HAZEL/ GLYCERIN PAD TP PRN (11:00)
[2019-12-13 11:13] LABS: Basophils # (Auto) 0.1 K/mm3 (0.0-0.1); Basophils % (Auto) 0.4 % (0.0-1.8); Eosinophils % (Auto) 0.1 % (0.0-4.3); Hematocrit 34.2 % (30.3-42.9); Hemoglobin 11.4 gm/dl (10.1-14.3); Lymphocytes % (Auto) 5.7 % (13.4-35.0); Mean Corpuscular HGB Conc 33 % (30-34); Mean Corpuscular Volume 91 fl (79-97); Monocytes # (Auto) 0.7 K/mm3 (0.0-0.8); Platelet Count 246 K/mm3 (140-440); Red Blood Count 3.77 M/mm3 (3.65-5.03)
[2019-12-13] MEDS ORDERED: PRENATAL VIT27-FE FUMARATE-FOLIC ACID VIT TAB PO SCH (12:00)
[2019-12-13] MEDS: HYDROcodone/ACETAMINOPHEN 5-325 MG TAB PO PRN ×2 (12:13→17:45)
[2019-12-13] MEDS ORDERED: AMPICILLIN/NS 1 GM/50 ML 1 GM/50 ML BAG IV SCH (13:00)
[2019-12-13 13:15] LABS: Hepatitis C Virus Antibody Non-Reactive (NonReactive)
[2019-12-13] MEDS: NIFEdipine XL 90 MG TAB PO SCH (17:26)
[2019-12-13] MEDS ORDERED: MAGNESIUM HYDROXIDE (MOM) ORAL LIQD UDC PO PRN (22:00)
[2019-12-14] MEDS: IBUPROFEN 600 MG TAB PO SCH ×3 (05:52→23:36)
[2019-12-14] MEDS: NIFEdipine XL 90 MG TAB PO SCH ×2 (05:58→21:15)
[2019-12-14] MEDS ORDERED: TETANUS,DIPH,PERTUSS(ACELL) VACCINE 0.5 ML SYRINGE IM ONE (06:00)
[2019-12-14] MEDS: MAGNESIUM SULFATE 40GM/1000ML 40 GM/1,000 ML BAG IV SCH (06:38)
[2019-12-14] MEDS ORDERED: SIMETHICONE 80 MG CHEW TAB ONE (09:18)
[2019-12-14] MEDS ORDERED: SIMETHICONE 80 MG CHEW TAB PO PRN (09:46)
--- NOTE | 2019-12-14 10:15 | Progress Note ---
Assessment and Plan PPD 1 s/p with no care. Pt now doing better. Plan for transfer to [facility] today. Continue on Procardia 90. Will also consult case management for Medicaid Access and history of no care. Subjective - Subjective Date of service: 12/14/19 Principal diagnosis: Spontaneous Vaginal Delivery, No care Interval history: Pt is a 39 year old who presents in active labor with no care with this . Pt has severe hypertension but it has now come down to normal range. Magnesium is now discontinued. Patient reports: appetite normal, voiding normally : doing well, in NICU ( for potential adoption) Objective - Vital Signs Latest vital signs: Vital Signs Temp Pulse Resp BP BP Pulse Ox 12/14/19 09:39 99 H 96 12/14/19 09:38 94 H 122/60 12/14/19 09:34 94 H 92 12/14/19 09:29 95 H 93 12/14/19 09:24 94 H 95 12/14/19 09:19 96 H 97 12/14/19 09:14 98 H 95 12/14/19 09:09 100 H 97 12/14/19 09:08 96 H 118/58 12/14/19 09:04 99 H 96 12/14/19 08:59 98 H 97 12/14/19 08:54 99 H 97 12/14/19 08:49 100 H 96 12/14/19 08:44 100 H 96 12/14/19 08:39 97 H 96 12/14/19 08:38 96 H 120/60 12/14/19 08:34 95 H 94 12/14/19 08:29 99 H 94 12/14/19 08:24 98 H 96 12/14/19 08:23 98.2 F 18 12/14/19 08:19 103 H 97 12/14/19 08:14 107 H 95 12/14/19 08:09 95 H 93 12/14/19 08:08 96 H 110/58 12/14/19 08:04 101 H 94 12/14/19 07:59 103 H 97 12/14/19 07:54 109 H 96 12/14/19 07:49 99 H 94 12/14/19 07:44 103 H 94 12/14/19 07:39 99 H 94 12/14/19 07:38 99 H 119/58 12/14/19 07:34 102 H 94 12/14/19 07:29 102 H 96 12/14/19 07:24 99 H 95 12/14/19 07:19 103 H 95 12/14/19 07:14 100 H 96 12/14/19 07:09 90 91 12/14/19 07:08 88 115/55 12/14/19 07:04 91 H 91 12/14/19 06:59 90 92 12/14/19 06:54 96 H 93 12/14/19 06:49 102 H 95 12/14/19 06:44 106 H 95 12/14/19 06:39 99 H 95 12/14/19 06:38 100 H 114/58 12/14/19 06:34 111 H 97 12/14/19 06:29 106 H 96 12/14/19 06:24 105 H 95 12/14/19 06:19 100 H 97 12/14/19 06:14 94 H 96 12/14/19 06:09 100 H 95 12/14/19 06:08 91 H 183/103 12/14/19 06:04 96 H 98 12/14/19 05:59 101 H 95 12/14/19 05:54 97 H 98 12/14/19 05:49 104 H 98 12/14/19 05:44 95 H 98 12/14/19 05:39 92 H 94 12/14/19 05:38 91 H 162/95 12/14/19 05:34 95 H 96 12/14/19 05:29 87 94 12/14/19 05:24 88 94 12/14/19 05:19 87 93 12/14/19 05:14 88 95 12/14/19 05:09 90 94 12/14/19 05:08 90 166/93 12/14/19 05:04 89 93 12/14/19 04:59 92 H 95 12/14/19 04:54 97 H 98 12/14/19 04:49 99 H 95 12/14/19 04:44 94 H 96 12/14/19 04:39 94 H 97 12/14/19 04:38 88 139/86 12/14/19 04:34 83 96 12/14/19 04:29 84 96 12/14/19 04:24 84 95 12/14/19 04:19 88 95 12/14/19 04:14 92 H 96 12/14/19 04:09 92 H 98 12/14/19 04:08 98 H 158/97 12/14/19 04:04 103 H 97 12/14/19 03:59 95 H 97 12/14/19 03:54 93 H 97 12/14/19 03:49 95 H 97 12/14/19 03:44 94 H 98 12/14/19 03:39 94 H 96 12/14/19 03:37 92 H 148/88 12/14/19 03:34 93 H 98 12/14/19 03:29 92 H 96 12/14/19 03:24 88 98 12/14/19 03:19 89 97 12/14/19 03:14 87 96 12/14/19 03:09 89 96 12/14/19 03:08 90 152/92 12/14/19 03:04 89 97 12/14/19 02:59 91 H 96 12/14/19 02:54 99 H 97 12/14/19 02:49 99 H 95 12/14/19 02:44 99 H 97 12/14/19 02:39 92 H 97 12/14/19 02:38 93 H 145/91 12/14/19 02:34 93 H 96 12/14/19 02:29 96 H 96 12/14/19 02:24 49 L 91 12/14/19 02:19 103 H 98 12/14/19 02:08 90 144/92 12/14/19 02:07 92 H 95 12/14/19 02:02 93 H 93 12/14/19 01:57 91 H 95 12/14/19 01:52 93 H 93 12/14/19 01:47 95 H 94 12/14/19 01:42 93 H 95 12/14/19 01:38 93 H 137/92 12/14/19 01:37 93 H 93 12/14/19 01:32 93 H 97 12/14/19 01:27 95 H 98 12/14/19 01:08 103 H 131/84 95 12/14/19 01:03 92 H 94 12/14/19 00:58 94 H 93 12/14/19 00:53 102 H 96 12/14/19 00:48 109 H 98 12/14/19 00:43 98 H 94 12/14/19 00:38 102 H 135/77 96 12/14/19 00:33 94 H 95 12/14/19 00:28 97 H 95 12/14/19 00:23 94 H 95 12/14/19 00:18 100 H 93 12/14/19 00:13 101 H 92 12/14/19 00:08 108 H 94 12/14/19 00:07 103 H 144/93 12/14/19 00:03 103 H 95 12/13/19 23:58 105 H 93 12/13/19 23:53 107 H 94 12/13/19 23:48 102 H 97 12/13/19 23:43 106 H 98 12/13/19 23:38 98 H 135/81 12/13/19 23:37 102 H 96 12/13/19 23:32 99 H 94 12/13/19 23:27 100 H 95 12/13/19 23:22 105 H 96 12/13/19 23:08 101 H 137/77 12/13/19 23:06 105 H 94 12/13/19 23:01 99 H 94 12/13/19 22:56 98 H 91 12/13/19 22:51 100 H 93 12/13/19 22:46 99 H 92 12/13/19 22:41 103 H 92 12/13/19 22:38 103 H 135/76 12/13/19 22:36 106 H 92 12/13/19 22:31 104 H 91 12/13/19 22:28 103 H 90 12/13/19 22:26 101 H 91 12/13/19 22:21 105 H 94 12/13/19 22:16 111 H 97 12/13/19 22:12 74 87 12/13/19 22:08 103 H 128/68 93 12/13/19 22:03 105 H 93 12/13/19 21:58 109 H 94 12/13/19 21:53 117 H 96 12/13/19 21:46 110 H 94 12/13/19 21:41 109 H 94 12/13/19 21:38 103 H 128/65 12/13/19 21:35 110 H 90 12/13/19 21:33 105 H 89 12/13/19 21:30 107 H 91 02/14/20 21:27 109 H 90 0214/20 21:25 103 H 93 02/14/20 21:20 109 H 92 0214/20 21:18 108 H 89 0214/20 21:15 107 H 92 0214/20 21:10 115 H 96 0214/20 21:08 112 H 119/61 90 0214/20 21:05 106 H 91 0214/20 21:03 106 H 89 0220 21:00 106 H 90 0220 20:57 110 H 89 0214/20 20:55 101 H 91 021420 20:50 109 H 92 0214/20 20:47 109 H 89 021420 20:45 106 H 93 021420 20:40 111 H 92 021420 20:39 119 H 90 021420 20:38 114 H 121/57 0214/20 20:35 110 H 92 021420 20:32 114 H 93 021420 20:30 111 H 96 021420 20:27 112 H 93 0214/20 20:22 114 H 93 0214/20 20:17 108 H 96 0214/20 20:15 114 H 93 0214/20 20:12 107 H 95 0214/20 20:10 109 H 93 0214/20 20:08 110 H 117/57 02/20 20:07 110 H 93 0214/20 20:04 111 H 94 0214/20 20:02 109 H 96 20 19:59 114 H 93 021420 19:56 117 H 93 0214/20 19:53 97.9 F 118 H 18 116/60 94 02/14/20 19:51 113 H 96 0214/20 19:48 116 H 93 0214/20 19:46 116 H 93 0214/20 19:41 114 H 94 0214/20 19:38 117 H 116/60 0214/20 19:36 120 H 94 02/14/20 19:31 121 H 96 0214/20 19:30 121 H 93 0214/20 19:26 120 H 96 0214/20 19:24 121 H 94 0214/20 19:21 119 H 96 12/13/19 19:16 119 H 96 12/13/19 19:11 119 H 95 12/13/19 19:08 119 H 93 12/13/19 19:07 121 H 126/58 12/13/19 19:06 120 H 91 12/13/19 19:03 124 H 94 12/13/19 19:01 123 H 96 12/13/19 18:57 122 H 129/59 93 12/13/19 18:56 120 H 96 12/13/19 18:51 121 H 95 12/13/19 18:49 124 H 94 12/13/19 18:46 125 H 96 12/13/19 18:41 124 H 120/56 93 12/13/19 18:39 128 H 94 12/13/19 18:36 129 H 94 12/13/19 18:34 130 H 94 12/13/19 18:31 127 H 96 12/13/19 18:27 122 H 94 12/13/19 18:26 123 H 95 12/13/19 18:21 128 H 95 12/13/19 18:19 134 H 94 12/13/19 18:16 124 H 96 12/13/19 18:12 127 H 94 12/13/19 18:11 125 H 133/64 96 12/13/19 18:06 130 H 97 12/13/19 18:01 131 H 98 12/13/19 17:57 133 H 176/74 12/13/19 17:56 131 H 98 12/13/19 17:50 125 H 185/89 12/13/19 17:49 126 H 98 12/13/19 17:44 123 H 99 12/13/19 17:41 120 H 187/105 12/13/19 17:39 120 H 99 12/13/19 17:34 116 H 99 12/13/19 17:29 117 H 99 12/13/19 17:24 113 H 99 12/13/19 17:19 118 H 99 12/13/19 17:17 113 H 176/102 12/13/19 17:14 118 H 198/109 99 12/13/19 17:12 114 H 193/118 12/13/19 17:09 119 H 98 12/13/19 17:04 117 H 99 12/13/19 16:59 119 H 98 12/13/19 16:54 126 H 97 12/13/19 16:49 119 H 99 12/13/19 16:44 113 H 95 12/13/19 16:42 115 H 94 12/13/19 16:41 107 H 184/106 12/13/19 16:39 109 H 97 12/13/19 16:34 110 H 97 12/13/19 16:29 111 H 196/103 98 12/13/19 16:24 109 H 98 12/13/19 16:19 107 H 96 12/13/19 16:18 107 H 93 12/13/19 16:14 109 H 98 12/13/19 16:12 108 H 197/107 12/13/19 16:09 110 H 98 12/13/19 16:04 111 H 98 12/13/19 15:59 109 H 99 12/13/19 15:55 112 H 189/106 12/13/19 15:54 111 H 202/115 99 12/13/19 15:49 107 H 96 12/13/19 15:44 112 H 97 12/13/19 15:42 116 H 201/118 12/13/19 15:39 115 H 97 12/13/19 15:34 118 H 97 12/13/19 15:29 120 H 98 12/13/19 15:24 120 H 94 12/13/19 15:19 115 H 96 12/13/19 15:16 114 H 93 12/13/19 15:14 115 H 97 12/13/19 15:11 114 H 195/109 12/13/19 15:10 115 H 205/116 93 12/13/19 15:09 115 H 95 12/13/19 15:04 117 H 97 12/13/19 14:59 119 H 98 12/13/19 14:54 120 H 96 12/13/19 14:49 118 H 97 12/13/19 14:44 121 H 98 12/13/19 14:41 120 H 187/118 94 12/13/19 14:39 117 H 97 12/13/19 14:34 120 H 98 12/13/19 14:29 118 H 96 12/13/19 14:24 118 H 97 12/13/19 14:22 118 H 94 12/13/19 14:19 125 H 93 12/13/19 14:14 121 H 94 12/13/19 14:12 116 H 196/114 12/13/19 14:11 118 H 94 12/13/19 14:09 118 H 97 12/13/19 14:04 120 H 98 12/13/19 13:59 121 H 96 12/13/19 13:54 126 H 98 12/13/19 13:49 131 H 98 12/13/19 13:44 121 H 95 12/13/19 13:41 121 H 190/102 88 12/13/19 13:39 122 H 97 12/13/19 13:34 121 H 96 12/13/19 13:29 125 H 96 12/13/19 13:27 125 H 197/102 91 12/13/19 13:24 126 H 96 12/13/19 13:20 129 H 94 12/13/19 13:19 123 H 95 12/13/19 13:14 123 H 95 12/13/19 13:11 122 H 192/117 91 12/13/19 13:09 129 H 96 12/13/19 13:04 124 H 96 12/13/19 12:59 123 H 97 12/13/19 12:58 125 H 94 12/13/19 12:54 127 H 96 12/13/19 12:49 127 H 96 12/13/19 12:44 127 H 97 12/13/19 12:40 125 H 199/113 92 12/13/19 12:39 128 H 97 12/13/19 12:34 124 H 98 12/13/19 12:29 124 H 98 12/13/19 12:26 121 H 184/125 12/13/19 12:25 127 H 94 12/13/19 12:24 125 H 98 12/13/19 12:19 128 H 97 12/13/19 12:14 128 H 96 12/13/19 12:13 24 12/13/19 12:09 121 H 97 12/13/19 12:07 121 H 200/123 12/13/19 12:04 120 H 98 12/13/19 11:59 124 H 96 12/13/19 11:55 129 H 187/124 12/13/19 11:54 125 H 98 12/13/19 11:49 125 H 97 12/13/19 11:44 131 H 98 12/13/19 11:35 119 H 97 12/13/19 11:30 119 H 98 12/13/19 11:25 122 H 195/107 97 12/13/19 11:20 123 H 98 12/13/19 11:15 123 H 177/116 98 12/13/19 10:45 116 H 201/100 12/13/19 10:43 120 H 176/103 96 12/13/19 10:39 119 H 94 12/13/19 10:38 119 H 94 12/13/19 10:33 120 H 98 12/13/19 10:28 112 H 200/102 93 12/13/19 10:23 112 H 91 12/13/19 10:19 117 H 90 12/13/19 10:18 117 H 93 12/13/19 10:13 116 H 198/104 94 Intake and Output 12/13/19 12/14/19 12/14/19 22:59 06:59 14:59 Intake Total 840 1000 Output Total 1200 700 Balance -360 300 Intake: IV 1000 MAGNESIUM SULFATE 40GM/ 1000 1000ML 40 gm In 1,000 ml @ 2 GM/HR 50 mls/hr IV DIRECT ELIJAH Rx#:[id number] Oral 840 Output: Urine 1200 700 Indwelling Catheter 1200 700 Other: Total, Intake Amount 240 Total, Output Amount 100 200 - Exam Breasts: Present: deferred Cardiovascular: Present: Regular rate, Normal S1, Normal S2 Lungs: Present: Clear to auscultation, Normal air movement Abdomen: Present: normal appearance, soft Uterus: Present: normal, firm Extremities: Present: normal - Labs Labs: Abnormal lab results 12/13/19 12/14/19 Range/Units 10:43 05:51 WBC 17.1 H (4.5-11.0) K/mm3 Lymph % (Auto) 5.7 L (13.4-35.0) % Lymph # 1.0 L (1.2-5.4) K/mm3 Seg Neutrophils % 89.8 H (40.0-70.0) % Seg Neutrophils # 15.3 H (1.8-7.7) K/mm3 Magnesium 5.70 H (1.7-2.3) mg/dL
[2019-12-14] MEDS: DOCUSATE SODIUM 100 MG CAP PO SCH (22:35)
[2019-12-15 00:45] LABS: Hemoglobin 10.7 gm/dl (10.1-14.3)
[2019-12-15] MEDS: NIFEdipine XL 90 MG TAB PO SCH ×2 (05:40→17:15)
[2019-12-15] MEDS: IBUPROFEN 600 MG TAB PO SCH ×2 (05:45→12:33)
[2019-12-15] MEDS: DOCUSATE SODIUM 100 MG CAP PO SCH ×2 (11:01→11:04)
--- NOTE | 2019-12-15 16:06 | Progress Note ---
Assessment and Plan PPD 2 s/p with no care. Pt giving up for adoption. Pt has severe hypertension that is being controlled now with medication. Plan for discharge on today. Subjective - Subjective Date of service: 12/15/19 Principal diagnosis: Spontaneous Vaginal Delivery, No care Interval history: Pt is a 39 year old who presents in active labor with no care with this . Pt has severe hypertension but it has now come down to normal range. Magnesium is now discontinued. Patient reports: appetite normal, voiding normally, pain well controlled : in NICU (baby for adoption) Objective - Vital Signs Latest vital signs: Vital Signs Temp Pulse Resp BP BP Pulse Ox 12/15/19 12:20 97.8 F 109 H 20 137/95 12/15/19 09:10 97.9 F 105 H 20 138/91 12/15/19 05:23 98.4 F 105 H 18 163/101 96 12/15/19 03:40 103 H 162/104 12/15/19 01:28 98.3 F 115 H 18 148/93 97 12/14/19 23:20 104 H 119/77 12/14/19 21:02 98.3 F 105 H 20 156/101 98 12/14/19 16:42 98 F 94 H 18 131/80 Intake and Output 12/15/19 12/15/19 12/15/19 06:59 14:59 22:59 Intake Total 600 240 Output Total 900 1000 Balance -300 -760 Intake: Oral 240 Intake, Free Water 600 Output: Urine 900 1000 Void 900 1000 Other: Total, Intake Amount 120 Total, Output Amount 400 400 # Voids Void 1 - Exam Cardiovascular: Present: Regular rate, Normal S1, Normal S2 Lungs: Present: Clear to auscultation, Normal air movement Abdomen: Present: normal appearance, soft, normal bowel sounds Vulva: both: normal Uterus: Present: normal, firm Extremities: Present: normal
--- NOTE | 2019-12-15 16:07 | Discharge Summary ---
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 No insurance coverage. Pt will need emergency medicaid. Severe hypertension Primary care physician: CATERINA SIFUENTES Hospitalization Reason for admission: active labor Delivery: Laceration: none Other procedures: none complications: other (elevated blood pressure) [place] baby: female Hospital course: unremarkable Condition at discharge: Good Disposition: DC-01 TO HOME OR SELFCARE Plan - Discharge Medications Prescriptions: Ibuprofen [Motrin 600 MG tab] 600 mg PO Q8H PRN #40 tablet PRN Reason: Pain NIFEdipine XL [Procardia Xl] 90 mg PO BID #60 tablet - Provider Discharge Summary Activity: routine, no sex for 6 weeks, no heavy lifting 4 weeks, no strenuous exercise Diet: routine Instructions: routine Additional instructions: [] Smoking cessation referral if applicable(refer to patient education folder for contact #) [] Refer to [facility]'s [facility] Booklet Call your doctor immediately for: * Fever > 100.5 * Heavy vaginal bleeding ( >1 pad per hour) * Severe persistent headache * Shortness of breath * Reddened, hot, painful area to leg or breast * Drainage or odor from incision. * Keep incision clean and dry at all times and follow doctor's instructions regarding bathing/showering - Follow up plan Follow up: CATERINA SIFUENTES MD [Primary Care Provider] - 14 Days
[2019-12-15 16:56] VITALS: BP 151/98
== END 2019-12-15 18:00 | disposition home or self-care (01) | DRG 807 ==
LOC: TRG 07:35 → LD 07:36 → TRG 07:37 → OB 12-14 14:57
PROVIDERS: ADMIT Obstetrics & Gynecology; ATTEND Obstetrics & Gynecology
PROC: 10E0XZZ Delivery of Products of Conception, External Approach (ICD-10-PCS; principal; 2019-12-13)
DX: O69.81X0 Labor and delivery complicated by cord around neck, without compression, not applicable or unspecified (principal); Z37.0 Single live birth; O16.4 Unspecified maternal hypertension, complicating childbirth; Z3A.40 40 weeks gestation of pregnancy
CPT/HCPCS: 36415; 80307; 82106; 82565; 83615; 83735; 84450; 84460; 84550; 85014; 85018; 85025; 85027; 85660; 86592; 86695; 86706; 86762; 86803; 86850; 86900; 86901; 87806; G0378; J0290; J0360; J2590; J3475; J7120